=== PATIENT | male | born 1980 | race African-American/Black ===

== ENCOUNTER 2016-06-20 16:19 | Emergency (ER) | payer SELFPAY ==
[~2016-06-20] VITALS: Ht 190.5 cm; Wt 110.0 kg
[~2016-06-20 16:19] MED LIST: Z.0.NO CURRENT MEDS
[2016-06-20 16:20] VITALS: BP 150/87; PULSE 73; RESP 13; TEMP 98.6; O2SAT 96
--- NOTE | 2016-06-20 16:27 | PD ---
Physical Exam Time Seen by Provider: 16:25 Narrative 35 y/o male with lower back pain for one day. Vital signs reviewed. Seen at triage desk. Awaiting bed placement. Data Data Last Documented VS Vital Signs Date Time Temp Pulse Resp B/P Pulse Ox O2 Delivery O2 Flow Rate FiO2 06/20/16 16:20 98.6 73 13 150/87 96 MDM Medical Record Reviewed: Yes Supervised Visit with KAREEM: No Angelo Valenzuela June 20, 2016 16:26
[2016-06-20] MEDS ORDERED: NAPR220T95 PO (17:32)
[2016-06-20] MEDS ORDERED: CYCL1TAB29 PO (17:38)
[2016-06-20] MEDS ORDERED: IBUP800T23 PO (17:38)
--- NOTE | 2016-06-20 17:39 | PD ---
HPI Chief Complaint: Back/ Neck Pain or Injury Time Seen by Provider: 17:37 Travel History International Travel<30 days: No Contact w/Intl Traveler<30days: No Traveled to known affect area: No History of Present Illness HPI 35-year-old male presents to the emergency Department with complaint of exacerbation of low back pain. He has history of chronic low back pain from a previous accident. He denies new or recent injury. Says he has exacerbations of low back pain at time but this is the worst. Pain radiates down the back of both of his legs. 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 Denies paresthesias, loss of sensation, decreased range of motion, decreasing to bilateral lower extremities. Denies fever, vomiting, abdominal pain. Denies encopresis, incontinence, saddle anesthesias. Denies IV drug use. Denies cancer. Has not taken any medications or tried any treatments to alleviate his symptoms. Pain is aggravated with movement. No known allergies. Has no other medical complaints. No other modifying factors or associated signs and symptoms. PFSH Past Medical History Cardiovascular Problems: No Genitourinary: No Immune Disorder: No Musculoskeletal: No Neurologic: No Psychiatric: No Reproductive: No Respiratory: No Social History Alcohol Use: Yes Tobacco Use: Yes Substance Use: No Allergies-Medications (Allergen,Severity, Reaction): Coded Allergies: No Known Allergies (Verified Allergy, Mild, 06/29/06) Reported Meds & Prescriptions Reported Meds & Active Scripts Active Ibuprofen 800 Mg Tab 800 Mg PO Q6HR PRN Flexeril (Cyclobenzaprine HCl) 10 Mg Tab 10 Mg PO TID PRN Reported Aleve (Naproxen Sodium) 220 Mg Tab 220 Mg PO BID PRN Review of Systems Except as stated in HPI: all other systems reviewed are Neg Physical Exam Narrative GENERAL: Well-nourished, well-developed male patient, in no acute distress SKIN: Warm and dry. HEAD: Atraumatic. Normocephalic. EYES: Pupils equal and round. No scleral icterus. No injection or drainage. ENT: Mucosa pink and moist. Airway patent. NECK: Trachea midline. CARDIOVASCULAR: Regular rate. RESPIRATORY: No accessory muscle use. GASTROINTESTINAL: Rounded. MUSCULOSKELETAL: Bilateral lower extremities supple and non-tense with 2+ pedal pulses and sensory intact; with full range of motion and 5/5 strength. Active dorsiflexion and extension of bilateral feet. Bilateral straight leg raise is positive for low back pain. Ambulatory with guarded gait. Sitting up in bed at 90. No obvious deformities. No clubbing. No cyanosis. No edema. BACK: No midline point tenderness on palpation of the lumbar spine. Tenderness on palpation of bilateral paraspinal lumbar area. Distal tenderness on bilateral sacral areas. No obvious deformities. NEUROLOGICAL: Awake and alert. Oriented 3. No obvious cranial nerve deficits. Motor grossly within normal limits. Normal speech. Moves all extremities. 5/5 strength to all extremities. Sensory intact. PSYCHIATRIC: Appropriate mood and affect; insight and judgment normal. Data Data Last Documented VS Vital Signs Date Time Temp Pulse Resp B/P Pulse Ox O2 Delivery O2 Flow Rate FiO2 06/20/16 16:20 98.6 73 13 150/87 96 MDM Medical Decision Making Medical Screen Exam Complete: Yes Emergency Medical Condition: Yes Medical Record Reviewed: Yes Differential Diagnosis Low back strain, sciatica, acute exacerbation of chronic low back pain Narrative Course 35-year-old male with history of chronic low back pain from a previous accident presents with acute exacerbation of chronic low back pain and sciatica. No new or recent injury. Works as a construction plant operator laying brick. Denies encopresis, incontinence, saddle anesthesias. Patient is afebrile and nontoxic appearing. He denies fever, vomiting. Denies IV drug use. Denies cancer. No midline point tenderness on palpation of the lumbar spine. Robaxin and ibuprofen administered in the ER. Flexeril and ibuprofen prescribed for home. Patient verbalizes understanding and agreement with treatment plan. Patient is medically cleared and stable for discharge. Discussed reasons to return to the emergency department. Instructed patient to follow up with primary care provider. Patient agrees with treatment plan. The patients vital signs are stable and the patient is stable for outpatient follow-up and treatment. Patient discharged home, stable and in no acute distress. Diagnosis Primary Impression: Acute exacerbation of chronic low back pain Additional Impression: Sciatica Qualified Code: M54.31 - Bilateral sciatica Referrals: Primary Care Physician Patient Instructions: Acute Low Back Pain (ED), General Instructions, Low Back Strain (ED), Lower Back Exercises (ED), Sciatica (ED) Departure Forms: Tests/Procedures, Work Release Enter return to work date: June 22, 2016 Additional Instructions: Tylenol or ibuprofen as directed and as needed to reduce pain Flexeril as prescribed for muscle spasms Get adequate rest Ice and/or heating pad to affected area to reduce pain Avoid aggravating activity; increase activity as tolerated Follow-up with primary care provider Return to the emergency department immediately with worsening symptoms Med/Other Pt SpecificInfo: Prescription(s) given Scripts Ibuprofen 800 Mg [id number] Mg PO Q6HR PRN (PAIN) #30 TAB Ref 0 Prov:Kelli Moore 06/20/16 Cyclobenzaprine (Flexeril)10 Mg Tab10 Mg PO TID PRN (MUSCLE SPASM) #30 TAB Ref 0 Prov:Kelli Moore 06/20/16 Disposition: 01 DISCHARGE HOME Condition: Stable Kelli Moore June 20, 2016 17:39
[2016-06-20] MEDS ORDERED: METHOCARBAMOL 500 MG TAB PO ONE (17:45)
[2016-06-20] MEDS ORDERED: IBUPROFEN 800 MG TAB PO ONE (17:45)
== END 2016-06-20 18:03 | disposition home or self-care (01) ==
LOC: NEPK 16:19
DX: M54.5 Low back pain (principal); G89.29 Other chronic pain; M54.32 Sciatica, left side; M54.31 Sciatica, right side; Z72.0 Tobacco use
CPT/HCPCS: 99283